=== PATIENT | female | born 1955 | race Caucasian/White ===

== ENCOUNTER 2017-05-24 20:28 | Emergency (ER) | payer MEDICARE ==
[~2017-05-24] VITALS: Ht 165.1 cm; Wt 98.0 kg
[~2017-05-24 20:28] MED LIST: AMIT25TA9 PO; ANAS1TAB PO; CETI10 PO; LEVO88TA2 PO; OMEP20TA93 PO; PROP20TA3 PO; SERT-129 PO; SIMV20TA PO; SUMA100T2 PO; TIZA4 PO
[2017-05-24 20:43] VITALS: BP 137/73; PULSE 90; RESP 18; TEMP 98.2; O2SAT 95
--- NOTE | 2017-05-24 22:14 | PD ---
HPI Chief Complaint: Abdominal Pain Time Seen by Provider: 22:14 Travel History International Travel<30 days: No Contact w/Intl Traveler<30days: No Traveled to known affect area: No History of Present Illness HPI 61-year-old female came to the emergency room with her daughter with history of left lower quadrant abdominal pain. Patient says this is been going on for past 2 weeks. She has history of diverticulitis in her primary care started her on ciprofloxacin and Flagyl. Patient finished a ten-day course of the antibiotic but the pain is still there. This morning she ate half a piece of banana and did not eat anything after that since her appetite was completely gone. As per the daughter she has dry heaved few times. Patient says eating makes the pain worse. No history of diarrhea. At home yesterday she had some chills and fever she thought. Patient is afebrile in the emergency room. Her daughter put an IV and gave HER-2 liters of IV fluid bolus before coming to the emergency room. [facility]LY [facility] Past Medical History Narrative Medical List of her past medical, surgical, social and family history is reviewed from the nursing note. Arthritis: Yes Asthma: No Heart Rhythm Problems: No Cancer: Yes (L BREAST 2009, SURGERY, CHEMO AND RADIATION) Cardiovascular Problems: No High Cholesterol: Yes Chest Pain: No Congestive Heart Failure: Yes COPD: No Cerebrovascular Accident: No Diabetes: No Diverticulitis: Yes Endocrine: Yes Gastrointestinal Disorders: Yes GERD: No Genitourinary: No Hepatitis: No Hiatal Hernia: No Hypertension: Yes Immune Disorder: No Implanted Vascular Access Dvce: Yes Kidney Stones: No Musculoskeletal: Yes (OSTEOARTHRITIS, HX OF L3-S1 FUSION) Neurologic: No Psychiatric: Yes (CLAUSTROPHOBIC) Reproductive: No Respiratory: Yes (Asthma) Migraines: Yes Renal Failure: No Seizures: No Sleep Apnea: No Thyroid Disease: Yes (HYPO) Ulcer: No PNEUMOCCOCAL Vaccine (Year): 2009 ?: Not Menopausal: Yes Past Surgical History Abdominal Surgery: Yes (PARTIAL COLECTOMY 1999) Body Medical Devices: INSTRUMENTATION LUMBAR SPINE Cardiac Surgery: No Ear Surgery: No Endocrine Surgery: No Eye Surgery: No Genitourinary Surgery: No Gynecologic Surgery: Yes (L OOPHORECTOMY 1985, HYSTERECTOMY AND R OVARY REMOVED 1986) Hysterectomy: Yes Joint Replacement: Yes (R TOTAL KNEE) Oral Surgery: No Thoracic Surgery: Yes (BILATERAL MASTECTOMY 2009) Other Surgery: Yes (coloectomy. fusions hysterectomy, cyste removed from wrist) Social History Alcohol Use: No Tobacco Use: No Substance Use: No Allergies-Medications (Allergen,Severity, Reaction): Coded Allergies: penicillin G (Unverified Allergy, Severe, Anaphylaxis, 05/24/17) gentamicin (Unverified Adverse Reaction, Intermediate, DIARRHEA, 05/24/17) Comments List of her allergies reviewed from the nursing note. Reported Meds & Prescriptions Reported Meds & Active Scripts Active Zofran (Ondansetron HCl) 8 Mg Tab 8 Mg PO TID Cipro (Ciprofloxacin HCl) 500 Mg Tab 500 Mg PO BID 10 Days Reported Breo Ellipta Inh (Fluticasone/Vilanterol) 100-25 Mcg/Act Inh 1 Puff INH DAILY Use daily at the same time. Metoprolol Tartrate 25 Mg Tab 25 Mg PO BID Amitriptyline (Amitriptyline HCl) 25 Mg Tab 25 Mg PO HS Simvastatin 20 Mg Tab 20 Mg PO HS Sertraline (Sertraline HCl) 100 Mg Tab 100 Mg PO DAILY Sumatriptan (Sumatriptan Succinate) 100 Mg Tab 100 Mg PO DAILY PRN If a satisfactory response has not been obtained at 2 hours, a second dose may be administered Cetirizine (Cetirizine HCl) 10 Mg Tab 10 Mg PO DAILY Anastrozole 1 Mg Tab 1 Mg PO DAILY Levothyroxine (Levothyroxine Sodium) 88 Mcg Tab 88 Mcg PO DAILY Omeprazole 20 Mg Tab 40 Mg PO DAILY Zanaflex (Tizanidine HCl) 4 Mg Tab 1.5 Tab PO HS Narrative Medication List of her home medications reviewed from the nursing note. Review of Systems Except as stated in HPI: all other systems reviewed are Neg Gastrointestinal: Positive: Abdominal Pain Physical Exam Narrative GENERAL: Awake, alert, obese, moderate disc SKIN: Focused skin assessment warm/dry. HEAD: Atraumatic. Normocephalic. EYES: Pupils equal and round. No scleral icterus. No injection or drainage. ENT: No nasal bleeding or discharge. Mucous membranes pink and moist. NECK: Trachea midline. No JVD. CARDIOVASCULAR: Regular rate and rhythm. No murmur appreciated. RESPIRATORY: No accessory muscle use. Clear to auscultation. Breath sounds equal bilaterally. GASTROINTESTINAL: Abdomen soft, left lower quadrant tenderness, nondistended. Hepatic and splenic margins not palpable. MUSCULOSKELETAL: No obvious deformities. No clubbing. No cyanosis. No edema. NEUROLOGICAL: Awake and alert. No obvious cranial nerve deficits. Motor grossly within normal limits. Normal speech. PSYCHIATRIC: Appropriate mood and affect; insight and judgment normal. Data Data Last Documented VS Vital Signs Date Time Temp Pulse Resp B/P (MAP) Pulse Ox O2 Delivery O2 Flow Rate FiO2 05/25/17 00:51 73 16 120/55 (76) 96 05/24/17 23:36 Room Air 05/24/17 20:43 98.2 Orders Orders Complete Blood Count With Diff (05/24/17 22:26) Comprehensive Metabolic Panel (05/24/17 22:26) Lipase (05/24/17 22:26) Urinalysis - C+S If Indicated (05/24/17 22:26) Iv Access Insert/Monitor (05/24/17 22:26) Ecg Monitoring (05/24/17 22:26) Oximetry (05/24/17 22:26) Sodium Chloride 0.9% Flush (Ns Flush) (05/24/17 22:30) Ketorolac Inj (Toradol Inj) (05/24/17 22:30) Ct Abd/Pel W Iv Contrast(Rout) (05/24/17 ) Ondansetron Inj (Zofran Inj) (05/24/17 22:30) Iohexol 350 Inj (Omnipaque 350 Inj) (05/24/17 23:58) Ondansetron Inj (Zofran Inj) (05/25/17 00:45) Ciprofloxacin (Cipro) (05/25/17 00:45) Labs Laboratory Tests Test 05/24/17 22:40 05/24/17 23:00 White Blood Count 12.3 TH/MM3 Red Blood Count 4.63 MIL/MM3 Hemoglobin 13.1 GM/DL Hematocrit 40.1 % Mean Corpuscular Volume 86.5 FL Mean Corpuscular Hemoglobin 28.3 PG Mean Corpuscular Hemoglobin Concent 32.7 % Red Cell Distribution Width 12.9 % Platelet Count 162 TH/MM3 Mean Platelet Volume 9.3 FL Neutrophils (%) (Auto) 64.5 % Lymphocytes (%) (Auto) 26.6 % Monocytes (%) (Auto) 3.3 % Eosinophils (%) (Auto) 2.7 % Basophils (%) (Auto) 2.9 % Neutrophils # (Auto) 7.9 TH/MM3 Lymphocytes # (Auto) 3.3 TH/MM3 Monocytes # (Auto) 0.4 TH/MM3 Eosinophils # (Auto) 0.3 TH/MM3 Basophils # (Auto) 0.4 TH/MM3 CBC Comment DIFF FINAL Differential Comment Blood Urea Nitrogen 15 MG/DL Creatinine 0.99 MG/DL Random Glucose 91 MG/DL Total Protein 7.5 GM/DL Albumin 3.7 GM/DL Calcium Level 9.0 MG/DL Alkaline Phosphatase 81 U/L Aspartate Amino Transf (AST/SGOT) 23 U/L Alanine Aminotransferase (ALT/SGPT) 31 U/L Total Bilirubin 0.6 MG/DL Sodium Level 139 MEQ/L Potassium Level 3.7 MEQ/L Chloride Level 107 MEQ/L Carbon Dioxide Level 23.3 MEQ/L Anion Gap 9 MEQ/L Estimat Glomerular Filtration Rate 57 ML/MIN Lipase 158 U/L Urine Color YELLOW Urine Turbidity CLEAR Urine pH 5.5 Urine Specific [place] 1.015 Urine Protein NEG mg/dL Urine Glucose (UA) NEG mg/dL Urine Ketones NEG mg/dL Urine Occult Blood SMALL Urine Nitrite NEG Urine Bilirubin NEG Urine Leukocyte Esterase TRACE Urine RBC 0-3 /hpf Urine WBC 3-5 /hpf Urine Squamous Epithelial Cells 0-5 /hpf Urine Bacteria OCC /hpf Microscopic Urinalysis Comment CULT NOT INDICATED MDM Medical Decision Making Medical Screen Exam Complete: Yes Emergency Medical Condition: Yes Medical Record Reviewed: Yes Differential Diagnosis Acute diverticulitis, diverticular abscess, outpatient treatment failure Narrative Course 11:20 PM blood test results are back. White blood cell count is slightly elevated. Awaiting for the UA and the CAT scan to be done and resulted. Patient is given IV pain medication. 11:55 PM awaiting for the CAT scan to be done and resulted. Case will be signed over to the oncoming ER physician. Procedures EKG Prior to Arrival: No Scripts Ondansetron (Zofran) 8 Mg Tab 8 MG PO TID for Nausea/Vomiting, #28 TAB 0 Refills Prov: Murali Kauffman MD 05/25/17 Ciprofloxacin (Cipro) 500 Mg Tab 500 MG PO BID for Infection for 10 Days, #20 TAB 0 Refills Prov: Murali Kauffman MD 05/25/17 Lexi Mora MD May 24, 2017 22:14
[2017-05-24] MEDS ORDERED: METO25TA3 PO (22:20)
[2017-05-24] MEDS ORDERED: FLUT1INH INH (22:21)
[2017-05-24] MEDS ORDERED: ONDANSETRON HCL 4 MG/2 ML VIAL IV PUSH ONE (22:30)
[2017-05-24] MEDS ORDERED: SODIUM CHLORIDE 0.9% FLUSH 10 ML FLUSH IV FLUSH PRN (22:30)
[2017-05-24] MEDS ORDERED: KETOROLAC TROMETHAMINE 30 MG/ML (IVP) VIAL IVP ONE (22:30)
[2017-05-24 22:39] VITALS: O2SAT 95
[2017-05-24 22:45] LABS: AUTOMATED NEUTROPHIL # 7.9 TH/MM3 (1.8-7.7); BASOPHIL # 0.4 TH/MM3 (0-0.2); BASOPHIL % 2.9 % (0.0-2.0); EOSINOPHIL # 0.3 TH/MM3 (0-0.4); EOSINOPHIL % 2.7 % (0.0-4.0); HEMATOCRIT 40.1 % (35.0-46.0); LYMPH % 26.6 % (9.0-44.0); LYMPHOCYTE # 3.3 TH/MM3 (1.0-4.8); MEAN CELL VOLUME 86.5 FL (80.0-100.0); MEAN CORPUSCULAR HEMOGLOBIN 28.3 PG (27.0-34.0); MEAN CORPUSCULAR HGB CONC 32.7 % (32.0-36.0); MONO % 3.3 % (0.0-8.0); NEUT % 64.5 % (16.0-70.0); PLATELET COUNT 162 TH/MM3 (150-450); RED BLOOD COUNT 4.63 MIL/MM3 (4.00-5.30); RED CELL DISTRIBUTION WIDTH 12.9 % (11.6-17.2); WHITE BLOOD COUNT 12.3 TH/MM3 (4.0-11.0)
[2017-05-24 22:52] LABS: CHLORIDE 107 MEQ/L (98-107); HEMO FLAGS DIFF FINAL; POTASSIUM 3.7 MEQ/L (3.5-5.1); SODIUM (NA) 139 MEQ/L (136-145)
[2017-05-24 22:56] LABS: ANION GAP 9 MEQ/L (5-15); BICARBONATE 23.3 MEQ/L (21.0-32.0); BLOOD UREA NITROGEN 15 MG/DL (7-18)
[2017-05-24 22:59] LABS: ALT (GPT) 31 U/L (10-53); AST (GOT) 23 U/L (15-37); GLOMERULAR FILTRATION RATE 57 ML/MIN (>89)
[2017-05-24 23:01] LABS: TOTAL BILIRUBIN ADULT 0.6 MG/DL (0.2-1.0)
[2017-05-24 23:02] LABS: ALKALINE PHOSPHATASE 81 U/L (45-117)
[2017-05-24 23:13] LABS: BLOOD, URINE SMALL (NEG); GLUCOSE,URINE NEG (NEG); KETONE, URINE NEG (NEG); NITRITE,URINE NEG (NEG); PH, URINE 5.5 (5.0-8.5)
[2017-05-24 23:17] LABS: URINE COLOR YELLOW (YELLW/STRAW)
[2017-05-24 23:18] LABS: BACTERIA, URINE OCC /hpf; COMMENT (UR) CULT NOT INDICATED; CULTURE IF INDICATED CULT NOT INDICATED; RBC, URINE 0-3 /hpf (0-3); SQUAMOUS EPITHELIAL CELL URINE 0-5 /hpf (0-5)
[2017-05-24 23:36] VITALS: BP 142/59; PULSE 81; RESP 16; O2SAT 95
[2017-05-24] MEDS ORDERED: IOHEXOL 350 MG/ML 10 ML VIAL (for RAD DIAG) IVCONTRAST ONE (23:58)
[2017-05-25 00:08] VITALS: RESP 18
--- NOTE | 2017-05-25 00:22 | RADRPT ---
EXAM DATE/TIME: 05/24/2017 23:44 [facility] COMPARISON: CT ABDOMEN & PELVIS W/O CONTRAST, December 11, 2010, 21:46. INDICATIONS : Abdominal pain with nausea, vomiting and low grade fever. IV CONTRAST: 95 cc Omnipaque 350 (iohexol) IV ORAL CONTRAST: No oral contrast ingested. RADIATION DOSE: 20.84 CTDIvol (mGy) MEDICAL HISTORY : Diverticulitis. Congestive heart failure. Hypertension.Breast cancer. SURGICAL HISTORY : Mastectomy, bilateral. Hysterectomy.Fusion, lumbar.Partial colectomy. ENCOUNTER: Initial ACUITY: 2 weeks PAIN SCALE: 7/10 LOCATION: Bilateral abdomen TECHNIQUE: Volumetric scanning of the abdomen and pelvis was performed. Using automated exposure control and ad justment of the mA and/or kV according to patient size, radiation dose was kept as low as reasonably achievable to obtain optimal diagnostic quality images. DICOM format image data is available electro nically for review and comparison. FINDINGS: Examination of the lung bases demonstrates no abnormality. No pleural fluid is identified. No pulmona ry nodules are present. There is decreased density of the liver with respect to the spleen compatible with fatty infiltration. The spleen is unremarkable. The gallbladder is normal without wall thickeni ng or pericholecystic fluid. There is dilatation of the common duct to 1.2 cm unchanged from 2010. Th e pancreas is normal. MRCP could be performed for further evaluation if clinically indicated. The adr enal glands and kidneys appear normal bilaterally. No hydronephrosis or mass lesions are identified. There is a lateral abdominal wall hernia defect measuring 9.2 x 4.5 cm containing only fat. Examination of the pelvis demonstrates no evidence of free fluid or pelvic mass. No abnormally enlarg ed inguinal or retroperitoneal lymph nodes are present. The bladder is unremarkable. A staple line is present in the sigmoid colon. CONCLUSION: 1. No evidence of acute abdominal or pelvic process. No masses are identified. 2. Stable dilatation of the common bile duct 1.2 cm of uncertain etiology. MRCP could be performed fo r further evaluation if clinically indicated. 3. Lateral fat containing abdominal wall hernia Compa Campuzano MD on May 25, 2017 at 0:16 Board Certified Radiologist. This report was verified electronically.
--- NOTE | 2017-05-25 00:29 | PD ---
Physical Exam Time Seen by Provider: 00:[address] Mora with this patient with me to check the CT scan and discharge if normal. Data Data Last Documented VS Vital Signs Date Time Temp Pulse Resp B/P (MAP) Pulse Ox O2 Delivery O2 Flow Rate FiO2 05/24/17 23:36 81 16 142/59 (86) 95 Room Air 05/24/17 20:43 98.2 Orders Orders Complete Blood Count With Diff (05/24/17 22:26) Comprehensive Metabolic Panel (05/24/17 22:26) Lipase (05/24/17 22:26) Urinalysis - C+S If Indicated (05/24/17 22:26) Iv Access Insert/Monitor (05/24/17 22:26) Ecg Monitoring (05/24/17 22:26) Oximetry (05/24/17 22:26) Sodium Chloride 0.9% Flush (Ns Flush) (05/24/17 22:30) Ketorolac Inj (Toradol Inj) (05/24/17 22:30) Ct Abd/Pel W Iv Contrast(Rout) (05/24/17 ) Ondansetron Inj (Zofran Inj) (05/24/17 22:30) Iohexol 350 Inj (Omnipaque 350 Inj) (05/24/17 23:58) Labs Laboratory Tests Test 05/24/17 22:40 05/24/17 23:00 White Blood Count 12.3 TH/MM3 Red Blood Count 4.63 MIL/MM3 Hemoglobin 13.1 GM/DL Hematocrit 40.1 % Mean Corpuscular Volume 86.5 FL Mean Corpuscular Hemoglobin 28.3 PG Mean Corpuscular Hemoglobin Concent 32.7 % Red Cell Distribution Width 12.9 % Platelet Count 162 TH/MM3 Mean Platelet Volume 9.3 FL Neutrophils (%) (Auto) 64.5 % Lymphocytes (%) (Auto) 26.6 % Monocytes (%) (Auto) 3.3 % Eosinophils (%) (Auto) 2.7 % Basophils (%) (Auto) 2.9 % Neutrophils # (Auto) 7.9 TH/MM3 Lymphocytes # (Auto) 3.3 TH/MM3 Monocytes # (Auto) 0.4 TH/MM3 Eosinophils # (Auto) 0.3 TH/MM3 Basophils # (Auto) 0.4 TH/MM3 CBC Comment DIFF FINAL Differential Comment Blood Urea Nitrogen 15 MG/DL Creatinine 0.99 MG/DL Random Glucose 91 MG/DL Total Protein 7.5 GM/DL Albumin 3.7 GM/DL Calcium Level 9.0 MG/DL Alkaline Phosphatase 81 U/L Aspartate Amino Transf (AST/SGOT) 23 U/L Alanine Aminotransferase (ALT/SGPT) 31 U/L Total Bilirubin 0.6 MG/DL Sodium Level 139 MEQ/L Potassium Level 3.7 MEQ/L Chloride Level 107 MEQ/L Carbon Dioxide Level 23.3 MEQ/L Anion Gap 9 MEQ/L Estimat Glomerular Filtration Rate 57 ML/MIN Lipase 158 U/L Urine Color YELLOW Urine Turbidity CLEAR Urine pH 5.5 Urine Specific [place] 1.015 Urine Protein NEG mg/dL Urine Glucose (UA) NEG mg/dL Urine Ketones NEG mg/dL Urine Occult Blood SMALL Urine Nitrite NEG Urine Bilirubin NEG Urine Leukocyte Esterase TRACE Urine RBC 0-3 /hpf Urine WBC 3-5 /hpf Urine Squamous Epithelial Cells 0-5 /hpf Urine Bacteria OCC /hpf Microscopic Urinalysis Comment CULT NOT INDICATED MDM Medical Record Reviewed: Yes Supervised Visit with JUAN: No Interpretation(s) The CT abdomen/pelvis with IV contrast shows no acute change and specifically no diverticulitis. Incidentally noted is lateral fat-containing of bowel wall hernia. Differential Diagnosis Diverticulitis, colitis, cholecystitis, hydronephrosis from urinary stone, abdominal pain etiology undetermined Narrative Course The patient still has some left lower quadrant tenderness and this may be some mild diverticulitis. She just completed a course of Flagyl and we will put her on Cipro 500 twice daily for 10 days and she will follow up with her primary care physician. She should increase clear liquids and avoid fatty foods. She needs something for nausea and will be given Zofran. Diagnosis Primary Impression: Diverticulitis large intestine Additional Instruction: The Cipro is one twice daily for 10 days. Follow-up with your primary care physician as soon as possible. Med/Other Pt SpecificInfo: Prescription(s) given Scripts Ondansetron (Zofran) 8 Mg Tab 8 MG PO TID for Nausea/Vomiting, #28 TAB 0 Refills Prov: Murali Kauffman MD 05/25/17 Ciprofloxacin (Cipro) 500 Mg Tab 500 MG PO BID for Infection for 10 Days, #20 TAB 0 Refills Prov: Murali Kauffman MD 05/25/17 Disposition: 01 DISCHARGE HOME Condition: Stable Murali Kauffman MD May 25, 2017 00:29
[2017-05-25] MEDS ORDERED: CIPR-9 PO (00:34)
[2017-05-25] MEDS ORDERED: ZOFR8TAB PO (00:35)
[2017-05-25] MEDS ORDERED: ONDANSETRON HCL 4 MG/2 ML VIAL IV ONE (00:45)
[2017-05-25] MEDS ORDERED: CIPROFLOXACIN 500 MG TAB PO ONE (00:45)
[2017-05-25 00:51] VITALS: BP 120/55
== END 2017-05-25 01:12 | disposition home or self-care (01) ==
LOC: PHED 20:28
DX: K57.32 Diverticulitis of large intestine without perforation or abscess without bleeding (principal); K43.9 Ventral hernia without obstruction or gangrene; M19.90 Unspecified osteoarthritis, unspecified site; E78.00 Pure hypercholesterolemia, unspecified; I11.0 Hypertensive heart disease with heart failure; I50.9 Heart failure, unspecified; J45.909 Unspecified asthma, uncomplicated; Z85.3 Personal history of malignant neoplasm of breast; Z88.0 Allergy status to penicillin
CPT/HCPCS: 74177; 80053; 81001; 83690; 85025; 96374; 96375; 99285; J1885; J2405; Q9967